=== PATIENT | male | born 1930 | race Caucasian/White ===

== ENCOUNTER 2019-03-24 15:18 | Emergency (ER) | payer MEDICARE, BC ==
[~2019-03-24] VITALS: Ht 175.3 cm; Wt 76.2 kg
[2019-03-24 15:27] VITALS: BP 155/94
--- NOTE | 2019-03-24 15:39 | NUR ---
SEEN AND EXAMINED BY SAMMIE FONSECA
[2019-03-24] MEDS ORDERED: TDAP [DIPH/PERTUSSIS/TET] 0.5 ML VIAL IM ONE ×2 (15:52→16:00)
[2019-03-24] MEDS ORDERED: LIDOCAINE 1%-EPI 1:100,000 20 ML VIAL ONE (15:52)
[2019-03-24] MEDS ORDERED: LIDOCAINE 1%-EPI 1:100,000 20 ML VIAL TP ONE (16:00)
[2019-03-24] MEDS ORDERED: MENT3.5O TP (16:16)
[2019-03-24] MEDS ORDERED: IPRA3AMP23 IH (16:16)
[2019-03-24] MEDS ORDERED: FOLI0.8T23 PO (16:16)
[2019-03-24] MEDS ORDERED: AMLO2.5T2 PO (16:16)
[2019-03-24] MEDS ORDERED: FINA5TAB3 PO (16:16)
[2019-03-24] MEDS ORDERED: ACET-73 PO ×2 (16:16)
[2019-03-24] MEDS ORDERED: TRAM50TA2 PO (16:16)
[2019-03-24] MEDS ORDERED: MIDO5TAB PO (16:16)
[2019-03-24] MEDS ORDERED: MEMA7CAP PO (16:16)
[2019-03-24] MEDS ORDERED: PRED5TAB48 PO (16:16)
[2019-03-24] MEDS ORDERED: ESCI10TA PO (16:16)
[2019-03-24] MEDS ORDERED: CLOT15CR5 TP (16:16)
[2019-03-24] MEDS ORDERED: GUAI100S27 PO (16:16)
[2019-03-24] MEDS ORDERED: VIT1CAPS44 PO (16:16)
[2019-03-24] MEDS ORDERED: SIMV20TA6 PO (16:16)
[2019-03-24] MEDS ORDERED: ASCO500T9 PO (16:16)
[2019-03-24] MEDS ORDERED: BISA10SU61 RC (16:16)
[2019-03-24] MEDS ORDERED: PANT40TA4 PO (16:16)
[2019-03-24] MEDS ORDERED: POLY17PO4 PO (16:16)
[2019-03-24] MEDS ORDERED: LOPE2CAP40 PO (16:16)
[2019-03-24] MEDS ORDERED: LACT-239 PO (16:16)
[2019-03-24] MEDS ORDERED: PETR113O TP (16:16)
[2019-03-24] MEDS ORDERED: [UNRECOGNIZED DRUG - CODE] IJ (16:16)
[2019-03-24] MEDS ORDERED: MELA3TAB PO (16:16)
[2019-03-24] MEDS ORDERED: CLON0.1T PO (16:16)
--- NOTE | 2019-03-24 17:58 | NUR ---
Patient discharged to home in stable condition. Written and verbal after care instructions given. Patient verbalizes understanding of instruction.
== END 2019-03-24 18:01 | disposition home or self-care (01) ==
LOC: ER 15:23
DX: S81.811A Laceration without foreign body, right lower leg, initial encounter (principal); I10 Essential (primary) hypertension; F03.90 Unspecified dementia, unspecified severity, without behavioral disturbance, psychotic disturbance, mood disturbance, and anxiety; E78.5 Hyperlipidemia, unspecified; K21.9 Gastro-esophageal reflux disease without esophagitis; M35.3 Polymyalgia rheumatica; M81.0 Age-related osteoporosis without current pathological fracture; Z95.0 Presence of cardiac pacemaker; Z79.899 Other long term (current) drug therapy; X58.XXXA Exposure to other specified factors, initial encounter; Y93.89 Activity, other specified; Y92.89 Other specified places as the place of occurrence of the external cause; Y99.8 Other external cause status
CPT/HCPCS: 12004; 90471; 90715; 99283; A6403; J3490